=== PATIENT | male | born 1995 | race Caucasian/White ===

== ENCOUNTER 2021-10-21 16:20 | Emergency (ER) | payer MEDICARE, MEDICAID, SELFPAY ==
--- NOTE | ~2021-10-21 | XR_ITS ---
EXAM: XR knee RT min 4V HISTORY: knee pain AND SWELLING AFTER PLAYING SOCCER COMPARISON: None available FINDINGS: Normal mineralization. No fracture or dislocation. No lytic or blastic lesion. Joint space s maintained. No erosion or periosteal change. Infrapatellar soft tissue swelling, along the patellar tendon. Small volume joint fluid. IMPRESSION: No acute osseous finding in the right knee. Small volume joint effusion. Infrapatellar soft tissue sw elling. Reviewed, dictated and finalized at location K. IMPRESSION: No acute osseous finding in the right knee. Small volume joint effusion. Infrap atellar soft tissue swelling.
[2021-10-21 16:33] VITALS: BP 117/82; PULSE 99; RESP 16; TEMP 37.2; O2SAT 98
--- NOTE | 2021-10-21 17:06 | ED.GENADULT ---
HPI - General Adult General Chief complaint: Extremity Injury, Lower Stated complaint: Right Knee Injury Time Seen by Provider: 10/21/21 16:34 Source: RN notes reviewed History of Present Illness HPI narrative: Patient presents emergency department from home for right knee pain. Patient states he was playing soccer 2 days ago when he twisted his right knee and felt pain over the medial knee states since that time he had pain in the medial and posterior knee with some mild swelling present he denies falling down onto the knee he denies feeling any pops in the knee patient states he has been resting the knee and taking anti-inflammatories but the pain is worse with standing on the knee denies any pain in the ankle or hip patient does have a history of connective tissue disorder he states that he does easily injure ligaments Related Data Allergies Allergy/AdvReac Type Severity Reaction Status Date / Time No Known Allergies Allergy Verified 10/21/21 16:45 Review of Systems Review of Systems: Gen.: Denies fevers or chills Musculoskeletal: See HPI Neuro: Denies numbness, tingling, weakness Skin: Denies rash Endo: Denies DM PMFSH Past Medical History Medical History (Updated 10/21/21 @ 17:09 by Lai Moreau DO) Connective tissue disorder Family History Family History (Updated 04/06/12 @ 14:32 by DOCTOR UNKNOWN) Other Family history of thyroid disease Hypertension Social History Social History Smoking status: Never smoker Exam Narrative: APPEARANCE: No acute distress, nontoxic, resting in bed Eyes: EOMI HEENT: Normocephalic, atraumatic, RESPIRATORY: No respiratory distress MUSCULOSKELETAl: Tender palpation over the right medial posterior knee no tenderness over the anterior or lateral knee pain with flexion greater than 45 degrees no tenderness of the right hip or ankle right lower extremity neurovascular intact no overlying erythema NEURO: Awake and alert. Following commands, speech normal, no focal deficits SKIN:: Warm, dry. Normal Color no rash or lesions Course Course Emergency Course: Discussed with patient results of workup and diagnosis. Discussed need for follow-up with primary care, proper use of medication, and reasons to return to the emergency department. Patient understands and agrees to current treatment plan Vital Signs Vital signs: Vital Signs Temperature 98.9 F 10/21/21 16:33 Pulse Rate 99 10/21/21 16:33 Respiratory Rate 16 10/21/21 16:33 Blood Pressure 117/82 10/21/21 16:33 Pulse Oximetry 98 10/21/21 16:33 Temperature 98.9 F 10/21/21 16:33 Pulse Rate 99 10/21/21 16:33 Respiratory Rate 16 10/21/21 16:33 Blood Pressure 117/82 10/21/21 16:33 Pulse Oximetry 98 10/21/21 16:33 Medical Decision Making Vital Signs Vital Signs: Vital Signs Temperature 98.9 F 10/21/21 16:33 Pulse Rate 99 10/21/21 16:33 Respiratory Rate 16 10/21/21 16:33 Blood Pressure 117/82 10/21/21 16:33 Pulse Oximetry 98 10/21/21 16:33 Temperature 98.9 F 10/21/21 16:33 Pulse Rate 99 10/21/21 16:33 Respiratory Rate 16 10/21/21 16:33 Blood Pressure 117/82 10/21/21 16:33 Pulse Oximetry 98 10/21/21 16:33 Imaging Data Radiologist's impression: ITS Impressions Knee X-Ray 10/21/21 16:57 IMPRESSION: No acute osseous finding in the right knee. Small volume joint effusion. Infrapatellar soft tissue swelling. Discharge Plan Discharge Clinical Impression: Right knee sprain Patient Disposition: Home, Self-Care Condition: Stable Instructions: Antibiotic Form, Knee Sprain (ED) Additional Instructions: Return for increasing pain numbness or tingling of the extremities or any other symptoms of concern Prescriptions: New ibuprofen 400 mg tablet 400 mg PO Q6H PRN (Reason: pain) Qty: 20 RF: 0 Follow-up/Referrals: Campbell Wesley MD [Physician] -
== END 2021-10-21 17:33 | disposition home or self-care (01) ==
LOC: ANHED 17:29
PROVIDERS: Emergency Provider Emergency Medicine
DX: S83.91XA Sprain of unspecified site of right knee, initial encounter (principal); L94.9 Localized connective tissue disorder, unspecified; X50.9XXA Other and unspecified overexertion or strenuous movements or postures, initial encounter; Y93.66 Activity, soccer
CPT/HCPCS: 73564; 99283

== ENCOUNTER 2022-03-24 07:26 | Outpatient (CLI) | payer MEDICARE, MEDICAID, SELFPAY ==
--- NOTE | ~2022-03-24 | XR_ITS ---
XR chest 2V DATE: 03/24/2022 08:07 INDICATION: Unintentional weight loss TECHNIQUE: PA and lateral views COMPARISON: None FINDINGS: There is 45 degrees levoscoliosis of the thoracic spine. Right ventriculoperitoneal shunt catheter. Normal heart size. No hilar or mediastinal enlargement. The lungs appear moderately hyperinflated but clear of infiltrate or consolidation. No pleural effusi on or pulmonary vascular congestion or pneumothorax. IMPRESSION: Prominent thoracic levoscoliosis Right ventriculoperitoneal shunt; again noted is apparent discontinuity of the shunt in the right low er cervical area. Moderate hyperinflation; no active cardiopulmonary disease or significant change since 06/18/2017 Reviewed, dictated and finalized at location B. IMPRESSION: Prominent thoracic levoscoliosis Right ventriculoperitoneal shunt; again noted is apparent discontinuity of the shunt in the right lower cervical area. Moderate hyperinflation; no active cardiopulmonary disease or significant maria e since 06/18/2017
[2022-03-24 08:21] LABS: Basophils Percent Auto 0.4 % (0.2-1.2); Eosinophils Absolute Auto 0.1 K/mm3 (0-0.3); Eosinophils Percent Auto 1.5 % (0-4.4); Hematocrit 44.6 % (42.0-52.0); Hemoglobin 14.2 g/dL (14.0-18.0); Immature Granulocyte Absolute 0.02 K/mm3 (0.00-0.031); Immature Granulocyte Percent A 0.3 % (0-0.5); Lymphocytes Percent Auto 36.9 % (18.3-44.2); Mean Corpuscular HGB Conc 31.8 g/dl (32-36); Mean Corpuscular Hemoglobin 30.9 pg (26-34); Mean Corpuscular Volume 97.2 fl (80-100); Monocytes Absolute Auto 0.7 K/mm3 (0.1-0.6); Monocytes Percent Auto 8.9 % (2.6-8.5); Neutrophils Absolute Auto 3.8 K/mm3 (1.3-6.7); Platelet Count Result 195 k/mm3 (150-375); Red Blood Count 4.59 M/mm3 (4.6-6.20); Red Cell Distribution Width 12.4 % (11.5-14.5); White Blood Count 7.3 K/mm3 (4.5-10.0)
[2022-03-24 08:26] LABS: Alanine Aminotransferase 22 U/L (6-50); Albumin Level 3.9 g/dL (3.5-5.1); Alkaline Phosphatase 67 U/L (38-126); Anion Gap 9 mmol/L (8-16); Aspartate Amino Transferase 18 U/L (17-59); Bilirubin,Total 1.7 mg/dL (0.2-1.3); Blood Urea Nitrogen 16 mg/dL (9-20); Calcium 8.8 mg/dL (8.4-10.2); Carbon Dioxide 28 mmol/L (22-30); Chloride 102 mmol/L (98-107); Estimated Glomerular Filt Rate > 60; Glucose 90 mg/dL (65-110); Potassium 3.6 mmol/L (3.4-5.0); Sodium 139 mmol/L (137-145)
[2022-03-24 08:52] LABS: Thyroid Stimulating Hormone 0.824 uIU/mL (0.465-4.680)
[2022-03-24 08:53] LABS: Appearance Urine Clear (Clear); Bilirubin Urine Negative (Negative); Blood Urine Negative (Negative); Color Urine Yellow (Yellow); Glucose Urine UA Negative (Negative); Ketones Urine Negative (Negative); Leukocyte Esterase Ur Negative LEU/UL (Negative); Nitrate Urine Negative (Negative); Protein Urine Negative (Negative); Specific Grav Ur 1.025 (1.001-1.035); Urobilinogen Urine 0.2 mg/dL (<2.0); pH Urine 6.5 (5.0-9.0)
[2022-03-24 09:04] LABS: Add Urine Microscopic? NO
== END 2022-03-24 07:27 | disposition home or self-care (01) ==
LOC: ANHLAB 07:31
PROVIDERS: PCP Internal Medicine; Visit Provider Internal Medicine
DX: R63.4 Abnormal weight loss (principal); M41.9 Scoliosis, unspecified
CPT/HCPCS: 36415; 71046; 80053; 81003; 84443; 85025

== ENCOUNTER 2022-07-21 12:25 | Outpatient (CLI) | payer MEDICARE, MEDICAID, SELFPAY ==
[2022-07-21 12:49] LABS: Hematocrit 49.3 % (42.0-52.0); Hemoglobin 16.3 g/dL (14.0-18.0); Mean Corpuscular HGB Conc 33.1 g/dl (32-36); Mean Corpuscular Hemoglobin 32.2 pg (26-34); Mean Corpuscular Volume 97.4 fl (80-100); Mean Platelet Volume 9.9 fl (7.4-10.4); Platelet Count Result 224 k/mm3 (150-375); Red Blood Count 5.06 M/mm3 (4.6-6.20); Red Cell Distribution Width 12.3 % (11.5-14.5)
[2022-07-21 13:06] LABS: Chloride 104 mmol/L (98-107)
[2022-07-21 13:18] LABS: Alanine Aminotransferase 21 U/L (6-50); Albumin Level 4.4 g/dL (3.5-5.1); Alkaline Phosphatase 90 U/L (38-126); Anion Gap 7 mmol/L (8-16); Aspartate Amino Transferase 23 U/L (17-59); Bilirubin,Total 1.8 mg/dL (0.2-1.3); Blood Urea Nitrogen 12 mg/dL (9-20); Carbon Dioxide 30 mmol/L (22-30); Estimated Glomerular Filt Rate > 60; Glucose 102 mg/dL (65-110); Potassium 4.3 mmol/L (3.4-5.0); Sodium 141 mmol/L (137-145)
== END 2022-07-21 12:26 | disposition home or self-care (01) ==
PROVIDERS: PCP Internal Medicine; Visit Provider Emergency Medicine
DX: I10 Essential (primary) hypertension (principal)
CPT/HCPCS: 36415; 80053; 85027

== ENCOUNTER 2024-12-06 10:05 | Outpatient (CLI) | payer MEDICARE, SELFPAY ==
--- NOTE | ~2024-12-06 | US_ITS ---
EXAMINATION:US_VDOPREFRT_US INDICATION:Lower extremity pain. TECHNIQUE: Multiple grayscale, color flow and Doppler images of the right and left lower extremity de ep venous systems were obtained and reviewed. COMPARISON:No prior studies for comparison. FINDINGS: The common femoral, superficial femoral and popliteal veins demonstrate normal respiratory variation, augmentation and compressibility. Color flow is also seen within the posterior tibial, pe roneal, greater saphenous and profunda veins. No evidence for venous reflux. IMPRESSION: 1: No lower extremity deep venous thrombosis or venous reflux. Reviewed, dictated and finalized at location A.
--- OUTSIDE RECORDS SUMMARY | 2024-12-06 10:27 | XMS_ITS | Encounter Summary ---
Author Organization [facility] Address [address] [facility] [place] [address] Care Team Providers Care Accounts Receivable Coordinator Name Role Phone Ruiz Diaz MD Primary Care Provider [phone] Ammon Vega MD Unavailable Unknown, Provider Primary Care Provider UnavailRuma Wharton MD Primary Care Provider [phone] Reason for Visit * Reason Onset Date Comments General 09/20/2018 Encounter Details Date Type Department Care Team (Late st Contact Info) Description 09/20/2018 Telephone [facility] [address] [address] Ruiz Diaz MD [address] [place] [id number] General Social History Tobacco Use Types Packs/Day Years Used Date Smoking Tobacco: Some Days Cigarettes 0.1 13.4 Started: 2011 Smokeless Tobacco: Never Alcohol Use Standard Drinks/Week Comments Yes 0 (1 standard drink = 0.6 oz pur e alcohol) Rare--1-2 drink/ month Sex and Gender Information Value Date Recorded Sex Assigned at Male 11/11/2021 11:36 AM CDT Legal Sex Male 5:35 AM 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 She states she had already spoken with a nurse practiotoner this am. I advised her to have Medardo take ibuprofen Up to 4 times a day for the pain and swelling. Continue cold compress to the area. Nurse practitioner already placed referral for OT. Please give pt the information to call and schedule appt for OT. Thanks * Telephone Encounter - Marcella Valiente - 09/20/2018 7:54 AM CDT The pt's mother called for the results of the pt's XR Rt hand on 09/17/18 This nurse went over the results with the pt's mother but she would appreciate a call back from Dr Diaz to discuss the xray The pt's mother actually thought it was fractured Please call at # [phone] documented in this encounter Plan of Treatment Upcoming Encounters Date Type Department Care Team (Late st Contact Info) Description 08/15/2025 1:00 PM ERP PROJECT MANAGER Office Visit [facility] Dermatology [address] [place] [address], [place] [address] Herrera Potts MD [address] [place] [address] [address] [place] [address] documented as of this encounter Goals Goal Patient Goal Type Associated Problems Recent Progress Patient-Stated? Author Safety General On track( 020 1:18 PM CDT) Keira Duran, RN Note: Expected end date: Ongoing Interventions: Your nurse will assess your risk for falls/injury each visit Use appropriate and safe transfer methods Medication Management General On track( 020 1:18 PM CDT) Keira Duran, JOHN Note: Expected end date: Ongoing Interventions: Take all medications as prescribed Let your doctor know right away about any changes in your medications documented as of this encounter Visit Diagnoses Diagnosis Right hand pain- Primary Pain in limb documented in this encounter Care Teams Accounts Receivable Coordinator Relationship Specialty Start Date End Date Ruiz Diaz MD PCP - General 10/12/17 04/04/19 Unknown, Provider PCP - General 05/30/24 06/09/24 Ruma [place] [address] PCP - General Internal Medicine 06/10/24 Ammon Vega MD Neurology 10/26/17 documented as of this encounter
--- OUTSIDE RECORDS SUMMARY | 2024-12-06 10:27 | XMS_ITS | Clinical Summary ---
Author Organization [facility] Main [facility] s Address [address] [place] [address] Care Team Providers Care Block Splitter Operator Name Role Phone Danisha Vincent Primary Care Provider [phone] Allergies No known active allergies Medications mycophenolate mofetil (CELLCEPT) 500 mg tablet Take 1 tablet (500 mg total) by mouth daily 2 Active predniSONE (DELTASONE) 5 mg tablet Take 1 tablet (5 mg) by mouth daily 2 Active nortriptyline (PAMELOR) 50 mg capsule Take 75 mg by mouth nightly 2 Active brimonidine (ALPHAGAN) 0.2 % ophthalmic solution INSTILL 1 DROP INTO THE LEFT EYE THREE TIMES DAILY 2 Active dorzolamide-erik oloL (COSOPT) 22.3-6.8 mg/mL ophthalmic solution Administer 1 drop into affected eye(s) 3 (three) times a day 2 Active Rocklatan 0.02-0.005 % drops INSTILL ONE DROP INTO THE LEFT EYE AT BEDTIME 2 Active ibuprofen (ADVIL,MOTRIN) 400 mg tablet Take by mouth as needed Active promethazine (PHENERGAN) 25 mg tablet Take 1 tablet (25 mg total) by mouth every 6 (six) hours as needed 10/07/202 1 Active prednisoLONE acetate (PRED FORTE) 1 % ophthalmic suspension Administer 1 drop into affected eye(s) 4 (four) times a day 1 Active sodium chloride (JESSICA 128) 2 % ophthalmic solutionIndicat ions:Corneal Edema Administer 1 drop into the right eye daily Active Active Problems Problem Noted Date Diagnosed Date 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 Intellectual disability 07/14/2022 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/18/2013 Overview (10/08/2016): Arnold-Chiari deformity Glaucoma 07/18/2013 Overview (10/08/2016): Glaucoma Developmental delay 07/18/2013 Overview (10/08/2016): Developmental delay Hydrocephalus 07/18/2013 Overview (10/08/2016): Hydrocephalus Limb length discrepancy 07/18/2013 Overview (10/10/2016): Acquired unequal limb length Cerebral palsy 07/18/2013 Overview (10/10/2016): Cerebral palsy Premature 07/18/2013 Overview (10/10/2016): Prematurity Raynaud's disease 07/18/2013 Overview (10/10/2016): Raynauds disease Irritable bowel syndrome 11/25/2012 Snoring 11/25/2012 Absolute glaucoma 11/25/2012 Fracture of nasal bone 11/25/2012 Diarrhea 11/25/2012 Nasal congestion 11/25/2012 Cephalalgia 11/25/2012 Insomnia 11/25/2012 Encounters Date Type Department Care Team Description 10/28/2024 12:51 PM CDT - 10/28/2024 11:59 PM CDT Hospital Encounter [facility] [address] [place] [address] Unspecified injury of right lower leg, subsequent encounter Discharge Disposition: Discharge to home or self care 10/18/2024 Orders Only [facility] Health Information Management [address] [place] [address] Scanning, Provider from Last 3 Months Surgical History Surgery Date Site/Laterality Comments OTHER SURGICAL HISTORY [facility] shunt 1993 OTHER SURGICAL HISTORY [id number] 1998 OTHER SURGICAL HISTORY Bilateral inguinal heria repair OTHER SURGICAL HISTORY T&A OTHER SURGICAL HISTORY PE tubes multiple OTHER SURGICAL HISTORY Feeding tubes OTHER SURGICAL HISTORY Ahmed shunt bilateral eyes OTHER SURGICAL HISTORY Excision skin cancer - back ORAL SURGERY Oral surgery OTHER SURGICAL HISTORY Closed reduction - L elbow Family History Medical History Relation Name Comments Glaucoma Father Glaucoma; Hypertension Father Hypertension; Liver disease Father Liver disease; Thyroid disease Mother Thyroid diso rder; Relation Name Status Comments Father Mother Social History Tobacco Use Types Packs/Day Years Used Date Smoking Tobacco: Some Days Cigarettes Passive Smoke Exposure: Current Tobacco Cessation:Ready to Q uit: No; Counseling Given: Not Answered Sex and Gender Information Value Date Recorded Sex Assigned at Not on file Legal Sex Male 11:13 AM DISTRICT SALES REPRESENTATIVE Gender Identity Male 11/16/2022 12:40 PM CDT Sexual Orientation Straight 11/16/2022 12 :40 PM CDT Obstetrics History Last Filed Vital Signs Vital Sign Reading Time Taken Comments Blood Pressure 123/70 03/28/2024 8:15 AM CDT Pulse 75 03/28/2024 8:15 AM CDT Temperature 36.8 C (98.2 F) 03/28/2024 8:15 AM CDT Respiratory Rate 20 10/07/2023 12:33 PM CDT Oxygen Saturation 100% 03/28/2024 8:15 AM CDT Inhaled Oxygen Concentration - - Weight 41.7 kg (92 lb) 03/28/2024 8:15 AM CDT Height 160 cm (5' 3) 12/09/2023 11:00 AM CDT Body Mass Index 16.3 12/09/2023 11:00 AM CDT Plan of Treatment Health Maintenance Due Date Last Done Comments Depression Screening 1993 Hepatitis C Screening 1993 Varicella Vaccines (1 of 2 - 13+ 2-dose series) 2006 Hepatitis B Screening 2011 Regular Well Visit/Exam 18-64 2011 Zoster Vaccine (1 of 2) 2012 Covid-19 Vaccine ( season) 2024 12/26/2021, 12/26/2021, 05/02/2021, Additional history exists Influenza Vaccine (Season Ended) 2025 05/06/2022, 04/25/2021, 04/15/2021, Additional history exists Pneumococcal vaccine <65 (3 of 3 - PPSV23, PCV20 or PCV21) 11/29/2025 11/29/2020, 07/30/2018 DTaP/Tdap/Td Vaccine (3 - Td or Tdap) 07/06/2028 07/06/2018, 03/05/2016 HPV Vaccines Aged Out No longer eligi ble based on patient's age to complete this topic Procedures Procedure Name Priority Date/Time Associated Diagnosis Comments MRI KNEE RIGHT WO CONTRAST Schedule Routine, Read Routine (OP Routine) 10/28/2024 2:41 PM CDT Unspecified injury of right lower leg, subsequent encounter SCAN - OTHER ORDERS 10/18/2024 1:34 PM CDT from Last 3 Months Results * MRI Knee Right WO Contrast (10/28/2024 2:41 PM CDT) Anatomical Region Laterality Modality Lower Extremities Right Magnetic Reson ance 10/28/2024 4:21 PM CDT Impressions 10/28/2024 4:39 PM CDT 1. Normal right knee MRI examination. Dictated by: Nikos Chung D.O. The radiology attending physician has personally reviewed this study, and had reviewed and/or edited this written report and agrees with it. Electronically signed by: Bimal Tariq M.D. Narrative 10/28/2024 4:39 PM CDT EXAMINATION: MRI KNEE RIGHT WO CONTRAST HISTORY: Injury of right leg COMPARISON: None TECHNIQUE: Multiplanar, multisequence MR examination of the right knee was performed without intravenous or intraarticular contrast. FINDINGS: In the medial compartment, the meniscus is intact. No focal chondral defect or subchondral marrow edema. In the lateral compartment, the meniscus is intact. No focal chondral defect or subchondral marrow edema. In the patellofemoral compartment, there is no focal chondral defect or subchondral marrow edema. The cruciate and collateral ligaments are intact. The extensor mechanism is normal as is the popliteus tendon. Small knee joint effusion without significant synovitis. No intra-articular loose body. Bone marrow signal is normal. There is a linear cutaneous ridge anterior to the tendon which may represent skin fold or scar. Subcutaneous T2 hyperintensity along the anteromedial patella and within the prepatellar quadriceps continuation are favored to represent dilated venous structure or small ganglion. Procedure Note Bimal Tariq MD - 10/28/2024 EXAMINATION: MRI KNEE RIGHT WO CONTRAST HISTORY: Injury of right leg COMPARISON: None TECHNIQUE: Multiplanar, multisequence MR examination of the right knee was performed without intravenous or intraarticular contrast. FINDINGS: In the medial compartment, the meniscus is intact. No focal chondral defect or subchondral marrow edema. In the lateral compartment, the meniscus is intact. No focal chondral defect or subchondral marrow edema. In the patellofemoral compartment, there is no focal chondral defect or subchondral marrow edema. The cruciate and collateral ligaments are intact. The extensor mechanism is normal as is the popliteus tendon. Small knee joint effusion without significant synovitis. No intra-articular loose body. Bone marrow signal is normal. There is a linear cutaneous ridge anterior to the tendon which may represent skin fold or scar. Subcutaneous T2 hyperintensity along the anteromedial patella and within the prepatellar quadriceps continuation are favored to represent dilated venous structure or small ganglion. IMPRESSION: 1. Normal right knee MRI examination. Dictated by: Nikos Chung D.O. The radiology attending physician has personally reviewed this study, and had reviewed and/or edited this written report and agrees with it. Electronically signed by: Bimal Tariq M.D. us Notinfile Unknown IMG MRI PROCEDURES Final Resul t * SCAN - OTHER ORDERS (10/18/2024 1:34 PM CDT) us Provider Scanning Final Result from Last 3 Months Insurance [facility] MEDICARE [facility] Address: [place] [address] [employer] MEDICARE [facility] Address: [address] [place] [address] Care Teams Block Splitter Operator Relationship Specialty Start Date End Date Danisha Vincent PA [address] [place] [address] PCP - General Physician Wood Drilling Machine Operator 10/25/24
--- OUTSIDE RECORDS SUMMARY | 2024-12-06 10:27 | XMS_ITS | Encounter Summary ---
Author Organization [facility] Address [address] [facility] [place] [address] Care Team Providers Care Cnc Applications Engineer Name Role Phone Ruiz Diaz MD Primary Care Provider [phone] Ammon Vega MD Unavailable Unknown, Provider Primary Care Provider Ruma Helton MD Primary Care Provider [phone] Reason for Visit * Reason Onset Date Comments Appointment 11/10/2017 Encounter Details Date Type Department Care Team (Late st Contact Info) Description 11/10/2017 Telephone [facility] [address] [address] Ruiz Diaz MD [address] [place] [phone] Appointment Social History Tobacco Use Types Packs/Day Years Used Date Smoking Tobacco: Former Smokeless Tobacco: Never Sex and Gender Information Value Date Recorded Sex Assigned at Male 11/11/2021 11:36 AM CDT Legal Sex Male 5:35 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 Diaz. * Telephone Encounter - Ruiz Diaz MD - 11/16/2017 3:02 PM CDT Can you add pt in on Thus am, at the end of acute care schedule at [facility]. Thanks * Telephone Encounter - Ruiz Diaz MD - 11/11/2017 8:00 PM CDT You can double book me on 11/24/17 at 3:10p. thanks * Telephone Encounter - Mary Hodges - 11/10/2017 1:32 PM CDT Pt Babak Rodrigues#: [id number] Best contact #: [phone]-ROSALBA Pool Pt's mom, Corine called to schedule an appt for her son (Pt) Dr. Diaz is scheduling for 02/2018. Pt needs appt as soon as possible to have [employer] Forms completed. If appt is needed, pt isavailable on Thu,Thu or Thu. Corine, works at [employer], Room [address]. She states if no appt is available and Dr. Shaheen Booth can complete forms without seeing pt, she will drop off forms. Can you please advise? I can call Corine and let her know. RENEE: 02/09/2017 NOV: Not scheduled Thank you documented in this encounter Plan of Treatment Upcoming Encounters Date Type Department Care Team (Late st Contact Info) Description 08/15/2025 1:00 PM GRADER MEAT Office Visit [facility] [address] [facility], [place] [address] Herrera Potts MD [facility] [facility] [address] [place] [address] documented as of this encounter Visit Diagnoses Not on filedocumented in this encounter Care Teams Cnc Applications Engineer Relationship Specialty Start Date End Date Ruiz Diaz MD PCP - General 10/12/17 04/04/19 Unknown, Provider PCP - General 05/30/24 06/09/24 [place] [address] PCP - General Internal Medicine 06/10/24 Ammon Vega MD Neurology 10/26/17 documented as of this encounter
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
--- OUTSIDE RECORDS SUMMARY | 2024-12-06 10:27 | XMS_ITS | Encounter Summary ---
Author Organization [facility] Address [address] [place] [address] Care Team Providers Care Child Care Development Specialist Name Role Phone Ruiz Diaz MD Primary Care Provider Ammon Vega MD Unavailable Unknown, Provider Primary Care Provider Ruma Helton MD Primary Care Provider [phone] Reason for Visit * Reason Onset Date Comments General 09/16/2018 1st attempt to r /o triage Returned Call 09/16/2018 Offered triage Encounter Details Date Type Department Care Team (Late st Contact Info) Description 09/16/2018 Telephone 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 Yesterday he rated it at 11of 10 on pain scale. He denies injury. 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 It's his outer hand and 5th little finger. He says the hand/finger is often red and swollen and the pain is sharp. He does not see you again until late January. Please advise. Corine (mom/poa) Pt's mom stated that it looked pretty swollen, and requested this nurse contact her son directly to be triaged for an acute care appt. Phone number to contact the pt is [phone] [facility] triage pool to contact pt * Telephone Encounter - Cira Young - 09/16/2018 12:16 PM CDT 1st attempt to contact pt. to r/o triage. Left name, affiliation and contact number [phone]. Will re attempt [phone] at a later time. [employer] message Babak Arana has asked me to report that he is having outer right hand pain. Yesterday he rated it at 11of 10 on pain scale. He denies injury. 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 It's his outer hand and 5th little finger. He says the hand/finger is often red and swollen and the pain is sharp. He does not see you again until late January. Please advise. Corine (mom/poa) documented in this encounter Plan of Treatment Upcoming Encounters Date Type Department Care Team (Late st Contact Info) Description 08/15/2025 1:00 PM HANDTOOLS REPAIRER Office Visit [facility] - Dermatology [address] [place] [address], [place] [address] Herrera Potts MD [address] [place] [address] [address] [place] [address] documented as of this encounter Goals Goal Patient Goal Type Associated Problems Recent Progress Patient-Stated? Author Safety General On track( 020 1:18 PM CDT) No Keira Kearney, RN Note: Expected end date: Ongoing Interventions: Your nurse will assess your risk for falls/injury each visit Use appropriate and safe transfer methods Medication Management General On track( 020 1:18 PM CDT) No Keira Kearney, JOHN Note: Expected end date: Ongoing Interventions: Take all medications as prescribed Let your doctor know right away about any changes in your medications documented as of this encounter Visit Diagnoses Not on filedocumented in this encounter Care Teams Child Care Development Specialist Relationship Specialty Start Date End Date Ruiz Diaz MD PCP - General 10/12/17 04/04/19 Unknown, Provider PCP - General 05/30/24 06/09/24 [place] [address] PCP - General Internal Medicine 06/10/24 Ammon Vega MD Neurology 10/26/17 documented as of this encounter
--- OUTSIDE RECORDS SUMMARY | 2024-12-06 10:27 | XMS_ITS | Encounter Summary ---
Author Organization [facility] Address [address] [facility] [place] [address] Care Team Providers Care Bunker Worker Name Role Phone Ammon Vega MD Unavailable Unknown, Provider Primary Care Provider UnavailRuma Wharton MD Primary Care Provider [phone] Reason for Visit * Reason Onset Date Comments Refill Request 02/28/2022 Encounter Details Date Type Department Care Team (Late st Contact Info) Description 02/28/2022 Refill [facility] [address] [place] [phone] Pedrito Chaparro MD [address] [place] [address] DE[place] [phone] Refill Request Social History Tobacco Use Types Packs/Day Years Used Date Smoking Tobacco: Some Days Cigarettes 0.1 13.4 Started: 2011 Smokeless Tobacco: Never Comments:social -3 every oth er day Alcohol Use Standard Drinks/Week Comments Yes 0 (1 standard drink = 0.6 oz pur e alcohol) Rare--1-2 drink/ month AUDIT-C Answer Date Recorded Q1: How often do you have a drink containing alc ohol? 2-4 times a month 11/29/2020 Q2: How many drinks containi ng alcohol do you have on a typical day when you are drinking? 1 or 2 11/29/2020 Q3: How often do you have si x or more drinks on one occasion? 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 Answer Date of Assessment Author No 01/19/2020 12:05 PM CDT Delmy Ugarte RN * Is person blind or have serious difficulty seeing? Answer Date of Assessment Author Yes 01/19/2020 12:05 PM CDT Delmy Ugarte RN * Does person have serious difficulty walking/climbing stairs? Answer Date of Assessment Author No 01/19/2020 12:05 PM CDT Delmy Ugarte RN * Does person have difficulty dressing/bathing? Answer Date of Assessment Author No 01/19/2020 12:05 PM CDT Delmy Ugarte RN * Does person have difficulty doing errands alone? Answer Date of Assessment Author Yes 01/19/2020 12:05 PM [place] Delmy Ugarte RN documented as of this encounter Mental Status * Does person have difficulty concentrating/remembering/making decisions? Answer Entry Date Author No 01/19/2020 12:05 PM [place] Delmy Ugarte RN documented in this encounter Plan of Treatment Upcoming Encounters Date Type Department Care Team (Late st Contact Info) Description 08/15/2025 1:00 PM MANAGER OF DEVELOPMENT Office Visit [facility] [address] [place] [address], [place] [address] Herrera Potts MD [address] [place] [address] [address] [place] [address] documented as of this encounter Goals Goal [...] on filedocumented in this encounter Care Teams Bunker Worker Relationship Specialty Start Date End Date Unknown, Provider PCP - General 05/30/24 06/09/24 Ruma Mcnally MD [address] [place] [phone] PCP - General Internal Medicine 06/10/24 Ammon Vega MD Neurology 10/26/17 documented as of this encounter
--- OUTSIDE RECORDS SUMMARY | 2024-12-06 10:27 | XMS_ITS | Encounter Summary ---
Author Organization [facility] Address [address] [place] [address] Care Team Providers Care Caustic Pump Operator Name Role Phone Ammon Vega MD Unavailable Unknown, Provider Primary Care Provider UnavailRuma Wharton MD Primary Care Provider [phone] Reason for Visit * Reason Onset Date Comments MEDICATION REFILL 03/03/2022 Encounter Details Date Type Department Care Team (Late st Contact Info) Description 03/03/2022 Telephone [facility] [address] [place] [phone] Pedrito Chaparro MD [address] [place] [address] DE[place] [phone] MEDICATION REFILL Social History Tobacco Use Types Packs/Day Years [...] AM CDT Legal Sex Male 5:35 AM COW BUYER Gender Identity Male 11/11/2021 11:36 AM CDT [...] 01/19/2020 12:05 PM CDT Delmy Ugarte RN documented as of this encounter Mental Status * Does person have difficulty concentrating/remembering/making decisions? Answer Entry Date Author No 01/19/2020 12:05 PM CDT Delmy Ugarte RN documented in this encounter Plan of Treatment Upcoming Encounters Date Type Department Care Team (Late st Contact Info) Description 08/15/2025 1:00 PM COW BUYER Office Visit [facility] Derm[facility] [address] [place] [address], [facility] [place] [address] Herrera Potts MD [address] [place] [address] 3 [place] [address] documented as of this encounter Goals Goal [...] on filedocumented in this encounter Care Teams Caustic Pump Operator Relationship Specialty Start Date End Date Unknown, Provider PCP - General 05/30/24 06/09/24 Ruma Mcnally MD [address] [place] [phone] PCP - General Internal Medicine 06/10/24 Ammon Vega MD Neurology 10/26/17 documented as of this encounter
--- OUTSIDE RECORDS SUMMARY | 2024-12-06 10:27 | XMS_ITS | Continuity of Care Document ---
Author Organization [facility] Address [address] [place] [address] Phone Care Team Providers Care Pipe Cleaner Name Role Phone Luis Phillips PA-C Unavailable Unava ilable Advance Directives Directive Yes / No Effective Date File Name No Information Encounters Encounter Description Practice Location Reason(s) For Visit Diagnoses Date Provider Providers Copied on Encounter [facility] [employer] [facility] , [address], [place], [place], [id number], tel:[phone] [employer] [facility] [employer] No Information [address] Alan Smith. [address], [place], [place], [id number], [place]. tel:[phone] Family History Family Member Type Diagnosis Age At Onset No Information Payers Payer name Insurance type Covered libertarian ID Authoriza tion(s) No Information Social History [...]
--- OUTSIDE RECORDS SUMMARY | 2024-12-06 10:27 | XMS_ITS | Encounter Summary ---
Author Organization [facility] Address [address] [place] [address] Care Team Providers Care Telegraph Repeater Installer Name Role Phone Ammon Vega MD Unavailable Unknown, Provider Primary Care Provider UnavailRuma Wharton MD Primary Care Provider [phone]- [phone] Reason for Visit * Reason Comments Refill Request Encounter Details Date Type Department Care Team (Late st Contact Info) Description 02/24/2022 Refill [facility] [address] [place] [address] MD [address] [place] [address] Refill Request Social History Tobacco Use Types [...] AM CDT Legal Sex Male 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 Answer Date of Assessment Author Yes 01/19/2020 12:05 PM [place] Delmy Ugarte RN documented as of this encounter Mental Status * Does person have difficulty concentrating/remembering/making decisions? Answer Entry Date Author No 01/19/2020 12:05 PM Delmy Wolf RN documented in this encounter Plan of Treatment Upcoming Encounters Date Type Department Care Team (Late st Contact Info) Description 08/15/2025 1:00 PM OFFICE MACHINERY OR EQUIPMENT INSTALLER Office Visit [facility] D[facility] [address] [place] [address], [facility] [place] [address] Herrera Potts MD [address] [place] [address] 3 [place] [address] documented as of this encounter Goals Goal [...] on filedocumented in this encounter Care Teams Telegraph Repeater Installer Relationship Specialty Start Date End Date Unknown, Provider PCP - General 05/30/24 06/09/24 Ruma Mcnally MD [address] [place] [phone] PCP - General Internal Medicine 06/10/24 Ammon Vega MD Neurology 10/26/17 documented as of this encounter
--- OUTSIDE RECORDS SUMMARY | 2024-12-06 10:27 | XMS_ITS | Referral Summary ---
Author Organization [facility] Address [address] [place] [address] Care Team Providers Care Conservation Planner Name Role Phone Danisha Vincent Primary Care Provider Encounters Date Type Department Care Team Description 10/28/2024 12:51 PM CDT - 10/28/2024 11:59 PM CDT Hospital Encounter [facility] [address] [place] [address] Unspecified injury of right lower leg, subsequent encounter Discharge Disposition: Discharge to home or self care 10/18/2024 Orders Only [facility] Health Information Management [address] [place] [address] Scanning, Provider from Last 3 Months Allergies No known active allergies Medications mycophenolate [...] mouth every 6 (six) hours as needed 1 Active prednisoLONE acetate (PRED FORTE) 1 [...] Nasal congestion 11/25/2012 Cephalalgia 11/25/2012 Insomnia 11/25/2012 Social History Tobacco Use Types Packs/Day Years Used Date Smoking Tobacco: Some Days Cigarettes Passive Smoke Exposure: Current Tobacco Cessation:Ready to Q uit: No; Counseling Given: Not Answered Sex and Gender Information Value Date Recorded Sex Assigned at Not on file Legal Sex Male 11:13 AM SENIOR GAME DEVELOPER Gender Identity Male 11/16/2022 12:40 PM CDT Sexual Orientation Straight 11/16/2022 12 :40 PM CDT Last Filed Vital Signs Vital Sign Reading [...] 12/09/2023 11:00 AM CDT Plan of Treatment Not on file Procedures Procedure Name Priority Date/Time Associated Diagnosis [...] Final Result from Last 3 Months Insurance [facility] Address: [address] [address] [place] [address] [employer] MEDICARE ADV[facility]AGE [facility] Address: [address] [address] [place] [address] Care Teams Conservation Planner Relationship Specialty Start Date End Date Danisha Vincent PA [address] [place] [id number] PCP - General Physician Clinical Information Systems Director 10/25/24
--- OUTSIDE RECORDS SUMMARY | 2024-12-06 10:27 | XMS_ITS | Encounter Summary ---
Author Organization [facility] Address [address] [place] [address] Care Team Providers Care Passenger Rate Clerk Name Role Phone Ammon Vega MD Unavailable Unknown, Provider Primary Care Provider UnavailRuma Wharton MD Primary Care Provider [phone] Encounter Details Date Type Department Care Team (Late st Contact Info) Description 08/08/2019 Telephone [facility] [address] [place] [address] Shirley Alexander, MANAGER MSW-CHEMICAL PROCESSING LABORER [address] [facility] [address] [facility] [place] [address] Social History Tobacco Use Types Packs/Day Years [...] AM CDT Legal Sex Male 5:35 AM SPORTS BROADCASTING INTERNSHIP Gender Identity Male 11/11/2021 11:36 AM CDT Sexual Orientation Straight 11/11/2021 11 :36 AM CDT 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 I verified the fax and she states that she has been trying for several days to get it to go through. Please call her at [phone]. [employer] documented in this encounter Miscellaneous Notes * Telephone Encounter - Rosalva Scott LPN - 08/08/2019 2:47 PM [employer]TS BR[employer]CASTING [employer]NS[employer] Form printed from media and placed in providers box. [employer] * Telephone Encounter - Rosalva Scott LPN - 08/08/2019 2:47 PM [employer] BR[employer]CAST[employer] Images from the original note were not included. Coby Dominguez- Nurse Communication; Shirley Hamlin, SHINE-CHEMICAL PROCESSING LABORER 1 minute ago (2:45 PM) RN communication please print form in media tab dated today for [employer] and place in BOAT OFFICER Boubacar's mailbox.thanks Routing comment Coby Dominguez Garrett R 1 minute ago (2:45 PM) Mr. Rodrigues, We have received the form and I have requested that it be printed and placed in Nurse Practitioner Boubacar's mailbox for completion will send to her high priority.Thank you for choosing [facility] Care and have a great day. This [facility] message has not been read. [employer] * Telephone Encounter - Coby Dominguez - 08/08/2019 1:30 PM CST Provided alternative fax # via [employer]. [employer]CAST[employer] documented in this encounter Plan of Treatment Upcoming Encounters Date Type Department Care Team (Late st Contact Info) Description 08/15/2025 1:00 PM SPORTS BROADCASTING INTERNSHIP Office Visit [facility] [address] [facility], [place] [address] Herrera Potts MD [address] [facility] 3L [place] [address] documented as of this encounter Goals Goal Patient Goal Type Associated Problems Recent Progress Patient-Stated? Author Safety General On track( 020 1:18 PM CDT) No Keira Kearney, JOHN Note: Expected end date: Ongoing Interventions: Your nurse will assess your risk for falls/injury each visit Use appropriate and safe transfer methods Medication Management General On track( 1:18 PM CDT) No Keira Kearney, JOHN Note: Expected end date: Ongoing Interventions: Take all medications as prescribed Let your doctor know right away about any changes in your medications documented as of this encounter Visit Diagnoses Not on filedocumented in this encounter Care Teams Passenger Rate Clerk Relationship Specialty Start Date End Date Unknown, Provider PCP - General 05/30/24 06/09/24 Ruma Mcnally MD [address] [place] [phone] PCP - General Internal Medicine 06/10/24 Ammon Vega MD Neurology 10/26/17 documented as of this encounter
--- OUTSIDE RECORDS SUMMARY | 2024-12-06 10:27 | XMS_ITS | Encounter Summary ---
Author Organization [facility] Address [address] [facility] [place] [address] Care Team Providers Care Electric Switch Repairer Name Role Phone Ammon Vega MD Unavailable [phone] Unknown, Provider Primary Care Provider Unavaila Ruma Langford MD Primary Care Provider [phone] Reason for Referral * Consultation (Routine) - Closed Specialty Diagnoses / Procedures Referred By Ross melo Referred To Contact Dermatology Diagnoses Multiple atypical skin moles Ruma Mcnally [place] [address] Phone: tel: fax: Herrera Potts MD [address] [facility] 3 [place] [address] Phone: tel: fax: Referral ID Status Reason Start Date Expiration Date V isits Requested Visits Authorized [id number] Closed Specialty Services Required 06/01/2024 06/01/2025 12 12 GER AVIATION Encounter Details Date Type Department Care Team (Latest Contact Info) Description 06/01/2024 Transcribe Orders [facility] - [facility] Scheduling [address] [place] [phone] Ruma Mcnally MD [address] [place] [address] Multiple atypical skin moles Social History Tobacco Use Types Packs/Day Years [...] CDT Legal Sex Male 5:35 AM MANAGER AVIATION Gender Identity Male 11/11/2021 11:36 AM CDT [...] Contact Info) Description 08/15/2025 1:00 PM MANAGER AVIATION Office Visit [facility] [address] [facility], [place] [address] Herrera Potts MD [address] [facility] 3L [place] [address] Scheduled Referrals Name Type Priority Associated Diagnoses Order Schedule AMB REFERRAL TO DERMATOLOGY Outpatient Referral Routine Multiple atypical skin moles 1 Occurrences starting 06/01/2024 until 06/01/2025 documented as of this encounter Goals Goal [...] as of this encounter Visit Diagnoses Diagnosis Multiple atypical skin moles- Primary documented in this encounter Care Teams Electric Switch Repairer Relationship Specialty Start Date End Date Unknown, Provider PCP - General 05/30/24 06/09/24 Ruma Mcnally MD [address] [place] [phone] PCP - General Internal Medicine 06/10/24 Ammon Vega MD Neurology 10/26/17 documented as of this encounter
== END 2024-12-06 10:06 | disposition home or self-care (01) ==
PROVIDERS: PCP Internal Medicine; Visit Provider Nurse Practitioner Family
DX: M79.661 Pain in right lower leg (principal); M79.662 Pain in left lower leg
CPT/HCPCS: 93971

== ENCOUNTER 2025-05-20 18:46 | Emergency (ER) | payer MEDICARE, SELFPAY ==
--- OUTSIDE RECORDS SUMMARY | 2022-10-22 03:39 | XMS_ITS | Continuity of Care Document ---
Author Organization [facility] Address [address] [place] [address] Phone Care Team Providers Care Director [employer] Name Role Phone Luis Phillips PA-C Unavailable Unava ilable Advance Directives Directive Yes / No Effective Date File Name No Information Encounters Encounter Description Practice Location Reason(s) For Visit Diagnoses Date Provider Providers Copied on Encounter [facility] , [address], [place], [place], [id number], tel:[phone] [facility] No Information [address] Alan Smith. [address], [place], [place], [id number], [place]. tel:[phone] Family History Family Member Type Diagnosis Age At Onset No Information Payers Payer name Insurance type Covered democrat ID Authoriza tion(s) No Information Social History Type Description Quantity Date Captured Comments Sex Male Smoking Status No Information Chief Complaint And Reason For Visit No Information Reason For Referral Reason For Referral No Information History Of Present Illness Encounter Date Complaint History Of Prese nt Illness No Information Functional Status Date Functional Assessmen t No Information Instructions Date Instruction Additional Infor mation No Information Assessments Type Assessment Date No Information Patient Care Teams Name Effective Dates (start - stop) Status Members No Information
--- OUTSIDE RECORDS SUMMARY | 2022-10-22 03:39 | XMS_ITS | Continuity of Care Document ---
Author Organization [facility] Address [address] [place] [address] Phone Care Team Providers Care Dip Filler Name Role Phone Luis Phillips PA-C Unavailable Unava ilable Advance Directives Directive Yes / No Effective Date File Name No Information Encounters Encounter Description Practice Location Reason(s) For Visit Diagnoses Date Provider Providers Copied on Encounter [facility] , [address], [place], [place], [id number], tel:[phone] [facility] No Information [address] Alan Smith. [address], [place], [place], [address], [place]. tel:[phone] Family History Family Member Type Diagnosis Age At Onset No Information Payers Payer name Insurance type Covered republican ID Authoriza tion(s) No Information Social History [...]
--- NOTE | ~2025-05-20 | XR_ITS ---
EXAMINATION: XR finger 1st LT min 2V, 05/20/2025 18:55 LINUX ADMIN HISTORY: left thumb injury bruise/swelling to proximal fall COMPARISON: No comparisons available. Findings: No acute fracture or malalignment. No significant degenerative changes. Soft tissues unremarkable. Impression: No acute fracture or malalignment. Reviewed, dictated and finalized at location P. X ADMIN Impression: No acute fracture or malalignment.
--- NOTE | 2025-05-20 18:49 | ED.UPPEXIN ---
HPI - Extremity Injury (Upper) General Chief Complaint: Extremity Injury, Upper Stated Complaint: LT Hand thumb injury Time Seen by Provider: 05/20/25 18:47 Source: patient Mode of arrival: ambulatory Limitations: no limitations History of Present Illness HPI narrative: Babak is a 29 year old male patient presenting to the clinic today with c/o left thumb injury/pain. Patient was playing floor hockey and fell. Has bruising and swelling to the left proximal thumb. Is able to flex and extend over the pip joint, tenderness over the proximal thumb and mcp joint. Denies hitting his head or any LOC. Related Data Home Medications ?Medication ?Instructions ?Recorded ?Confirmed ?Last Taken ?Type atorvastatin 20 mg tablet (Lipitor) 20 mg PO DAILY 11/02/24 05/20/25 Unknown History atomoxetine 40 mg capsule mg PO 05/20/25 Unknown History brimonidine 0.2 % eye drops drp 05/20/25 Unknown History dorzolamide 22.3 mg-timolol 6.8 05/20/25 Unknown History mg/mL eye drops fluticasone propionate 50 intranasal 05/20/25 Unknown History mcg/actuation nasal spray,suspension mycophenolate mofetil 500 mg tablet PO 05/20/25 Unknown History netarsudil 0.02 %-latanoprost drp 05/20/25 Unknown History 0.005 % eye drops (Rocklatan) nortriptyline 75 mg capsule mg 05/20/25 Unknown History prednisolone acetate 1 % eye drp 05/20/25 Unknown History drops,suspension prednisone 5 mg tablet mg 05/20/25 Unknown History Allergies Allergy/AdvReac Type Severity Reaction Status Date / Time No Known Allergies Allergy Verified 05/20/25 18:48 Review of Systems Review of Systems: Pertinent positives per HPI. Patient denies any fever, chills, rash, headache, visual changes, dizziness, cough, runny nose, sore throat, shortness of breath, chest pain, palpitations, nausea, vomiting, diarrhea, constipation, abdominal pain, or any urinary issues. [facility] Past Medical History Medical History Venous malformation Knee pain Quadriceps tendonitis Left knee pain Right knee injury Connective tissue disorder Family History Family History Other Family history of thyroid disease Hypertension Social History Social History Smoking status: Never smoker Alcohol intake: never Substance use: never Living arrangements: with family Gender identity (if verbalized by the patient): Male Comments At the time of my signature, I reviewed and agree with the nursing past medical, surgical, social, and family history. There is no relevant family history pertinent to the patient complaint. Exam Narrative: General: Well-developed, well nourished, in no apparent distress Head: Normocephalic, atraumatic. Cardio: Regular rate and rhythm, s1 and s2 normal, no murmur appreciated. Resp: Clear to auscultation bilaterally, no rhonchi, rales, wheezing or rubs. Musculoskeletal: No deformity, bruising and swelling to the left proximal thumb, tenderness to palpation over the proximal thumb and over the MCP joint, limited rom over the mcp joint, muscle strength strong and equal, peripheral pulse strong, no edema, no cyanosis, normal gait and station Course Course Emergency Course: Portions of this record may have been created with voice recognition software. Level of Care: Express Care Visit Vital Signs Vital signs: Vital Signs Temperature 36.7 C 05/20/25 18:53 Pulse Rate 92 05/20/25 18:53 Respiratory Rate 18 05/20/25 18:53 Blood Pressure 138/95 H 05/20/25 18:53 Pulse Oximetry 100 05/20/25 18:53 Oxygen Delivery Room Air 05/20/25 18:53 Temperature 36.7 C 05/20/25 18:53 Pulse Rate 92 05/20/25 18:53 Respiratory Rate 18 05/20/25 18:53 Blood Pressure 138/95 H 05/20/25 18:53 Pulse Oximetry 100 05/20/25 18:53 Oxygen Delivery Room Air 05/20/25 18:53 Vital signs reviewed MDM - Extremity Injury (Upper) MDM Narrative Medical decision making narrative: At the time of visit patient is resting comfortably on the exam table. Patient appears to be nontoxic. C/o left thumb injury/pain. Patient was playing floor hockey and fell. Has bruising and swelling to the left proximal thumb. Is able to flex and extend over the pip joint, tenderness over the proximal thumb and mcp joint. Denies hitting his head or any LOC. Rates pain 5/6 out of 10. Has applied ice pack. Diagnostics: X-ray of the left thumb was ordered. X-ray of the left thumb is negative for any fracture or malalignment. Plan: Suspect patient has left thumb sprain. Recommend wearing a thumb spica splint, rest, ice, and elevation. May take Tylenol/Motrin for pain. Supportive measures were discussed with the patient and they voiced understanding discharge instructions and agrees to treatment plan. Return precautions reviewed Differential Diagnosis Differential diagnosis: Likely finger sprain, dislocation of finger and other (Finger fracture) Discharge Plan Discharge Clinical Impression: Left thumb sprain Qualifiers: Encounter type: initial encounter Sprain of finger site: metacarpophalangeal joint Qualified Code(s): S63.642A - Sprain of metacarpophalangeal joint of left thumb, initial encounter Patient Disposition: Home Condition: Stable Instructions: Antibiotic Form, Finger Sprain (ED) Additional Instructions: X-ray negative for any fracture or malalignment Rest, ice, elevate, and wear thumb spica splint as directed Tylenol/motrin for pain as discussed. Follow up with your PCP if symptoms persist more than 1 week. Patient Language: Yi Prescriptions: No Action prednisone 5 mg tablet mycophenolate mofetil 500 mg tablet PO prednisolone acetate 1 % drops,suspension nortriptyline 75 mg capsule brimonidine 0.2 % drops dorzolamide-timolol 22.3-6.8 mg/mL drops fluticasone propionate 50 mcg/actuation spray,suspension INTRANASAL atomoxetine 40 mg capsule PO Rocklatan 0.02-0.005 % drops ibuprofen 400 mg tablet 400 mg PO Q6H PRN (Reason: pain) Qty: 20 0RF atorvastatin [Lipitor] 20 mg tablet 20 mg PO DAILY Follow-up/Referrals: Melisa,EDER Raman [Primary Care Provider, Unknown] Time of Disposition: 19:07 Quality NIHSS Nursing Documentation ED NIHSS nursing documentation: reviewed/agree
--- OUTSIDE RECORDS SUMMARY | 2025-05-20 18:52 | XMS_ITS | Encounter Summary ---
Author Organization [facility] Health Address [address] [place] [address] Care Team Providers Care Machine Operator Transplanter Name Role Phone Ammon Vega MD Unavailable [phone] Unknown, Provider Primary Care Provider UnavailRuam Wharton MD Primary Care Provider [phone] Reason for Visit * Reason Onset Date Comments Refill Request 02/28/2022 Encounter Details Date Type Department Care Team (Late st Contact Info) Description 02/28/2022 Refill [facility] [address] [place] [phone] Pedrito Chaparro MD [address] [place] [address] [place] [phone] Refill Request Social History Tobacco Use Types Packs/Day Years Used Date Smoking Tobacco: Some Days Cigarettes 0.1 13.9 Started: 2011 Smokeless Tobacco: Never Comments:social -3 [...] AM CDT Legal Sex Male 5:35 AM SUPERVISOR THROWING DEPARTMENT Gender Identity Male 11/11/2021 11:36 AM CDT [...] st Contact Info) Description 08/15/2025 1:00 PM SUPERVISOR THROWING DEPARTMENT Office Visit [facility] - Dermatology [address] [place] [address], [place] [address] Herrera Potts MD [address] [place] [address] 3 [place] [address] documented as of this encounter Goals Goal [...] on filedocumented in this encounter Care Teams Machine Operator Transplanter Relationship Specialty Start Date End Date Unknown, Provider PCP - General 05/30/24 06/09/24 Ruma Mcnally MD [address] [place] [phone] PCP - General Internal Medicine 06/10/24 Ammon Vega MD Neurology 10/26/17 documented as of this encounter
--- OUTSIDE RECORDS SUMMARY | 2025-05-20 18:52 | XMS_ITS | Encounter Summary ---
Author Organization [facility] Health Address [address] [facility] [place] [address] Care Team Providers Care Director Digital Sales Name Role Phone Ammon Vega MD Unavailable [phone] Unknown, Provider Primary Care Provider UnavailRuma Wharton MD Primary Care Provider [phone] Reason for Referral * Consultation (Routine) - Closed Specialty Diagnoses / Procedures Referred By Ross melo Referred To Contact Dermatology Diagnoses Multiple atypical skin m[place] [address] Phone: tel: fax: Herrera Potts MD [address] [facility] 3 DE[place] [address] Phone: tel: fax: Referral ID Status Reason Start Date Expiration Date V isits Requested Visits Authorized [id number] Closed Specialty Services Required 06/01/2024 06/01/2025 12 12 RETER Encounter Details Date Type Department Care Team (Latest Contact Info) Description 06/01/2024 Transcribe Orders [facility] - [facility] Scheduling [address] [place] [address] Ruma Mcnally MD [facility] [place] [address] Multiple atypical skin moles Social History Tobacco Use Types Packs/Day Years Used Date Smoking Tobacco: Every Day Cigarettes 0.1 13.9 Started: 2011 Smokeless Tobacco: [...] AM CDT Legal Sex Male 5:35 AM CONCRETER Gender Identity Male 11/11/2021 11:36 AM CDT [...] Author No 01/19/2020 12:05 PM CDT Delmy Ugarte, JOHN * Does person have difficulty dressing/bathing? Answer Date of Assessment Author No 01/19/2020 12:05 PM [place] Delmy Ugarte, JOHN * Does person have difficulty doing errands [...] st Contact Info) Description 08/15/2025 1:00 PM CONCRETER Office Visit [facility] [address] [place] [address], [place] [address] Herrera Potts MD [address] [facility] 3L DEPT [place] [address] Scheduled Referrals Name Type Priority Associated Diagnoses [...] Primary documented in this encounter Care Teams Director Digital Sales Relationship Specialty Start Date End Date Unknown, Provider PCP - General 05/30/24 06/09/24 Ruma Mcnally MD [address] [place] [phone] PCP - General Internal Medicine 06/10/24 Ammon Vega MD Neurology 10/26/17 documented as of this encounter
--- OUTSIDE RECORDS SUMMARY | 2025-05-20 18:52 | XMS_ITS | Encounter Summary ---
Author Organization [facility] Health Address [address] [place] [address] Care Team Providers Care Commissary Worker Name Role Phone Ammon Vega MD Unavailable Unknown, Provider Primary Care Provider UnavailRuma Wharton MD Primary Care Provider [phone] Reason for Visit * Reason Onset Date Comments MEDICATION REFILL 03/03/2022 Encounter Details Date Type Department Care Team (Late st Contact Info) Description 03/03/2022 Telephone [facility] [address] [place] [phone] Pedrito Chaparro MD [address] [place] [address] [place] [phone] MEDICATION REFILL Social History Tobacco Use Types [...] AM CDT Legal Sex Male 5:35 AM SNUFF PACKING MACHINE OPERATOR Gender Identity Male 11/11/2021 11:36 AM CDT [...] st Contact Info) Description 08/15/2025 1:00 PM SNUFF PACKING MACHINE OPERATOR Office Visit [facility] [address] [place] [address], [facility] [place] [address] Herrera Potts MD [address] [place] [address] 3 [place] [address] documented as of this encounter Goals Goal [...] on filedocumented in this encounter Care Teams Commissary Worker Relationship Specialty Start Date End Date Unknown, Provider PCP - General 05/30/24 06/09/24 Ruma Mcnally MD [address] [place] [phone] PCP - General Internal Medicine 06/10/24 Ammon Vega MD Neurology 10/26/17 documented as of this encounter
--- OUTSIDE RECORDS SUMMARY | 2025-05-20 18:52 | XMS_ITS | Encounter Summary ---
Author Organization [facility] Health Address [address] [place] [address] Care Team Providers Care Self Defense Instructor Name Role Phone Ammon Vega MD Unavailable Unknown, Provider Primary Care Provider UnavailRuma Wharton MD Primary Care Provider [phone] Reason for Visit * Reason Comments Refill Request Encounter Details Date Type Department Care Team (Late st Contact Info) Description 02/24/2022 Refill [facility] [address] [place] [address] MD [facility]5 [place] [phone] Refill Request Social History Tobacco Use Types [...] AM CDT Legal Sex Male 5:35 AM CHIEF RESERVOIR ENGINEERING Gender Identity Male 11/11/2021 11:36 AM CDT [...] st Contact Info) Description 08/15/2025 1:00 PM CHIEF RESERVOIR ENGINEERING Office Visit [facility] Derm[facility] [address] [place] [address], [facility] [place] [address] Herrera Potts MD [address] [place] [address] 3 [place] [address] documented as of this encounter Goals Goal Patient Goal Type Associated Problems Recent Progress Patient-Stated? Author Safety General On track( 020 1:18 PM CDT) No Keira Kearney, RN Note: Expected end date: Ongoing Interventions: Your nurse will assess your risk for falls/injury each visit Use appropriate and safe transfer methods Medication Management General On track( 020 1:18 PM CDT) No Keira Kearney RN Note: Expected end date: Ongoing Interventions: Take all medications as prescribed Let your doctor know right away about any changes in your medications documented as of this encounter Visit Diagnoses Not on filedocumented in this encounter Care Teams Self Defense Instructor Relationship Specialty Start Date End Date Unknown, Provider PCP - General 05/30/24 06/09/24 Ruma Mcnally MD [address] [place] [phone] PCP - General Internal Medicine 06/10/24 Ammon Vega MD Neurology 10/26/17 documented as of this encounter
--- OUTSIDE RECORDS SUMMARY | 2025-05-20 18:52 | XMS_ITS | Encounter Summary ---
Author Organization [facility] Health Address [address] [place] [address] Care Team Providers Care Automotive Production Worker Name Role Phone Ruiz Diaz MD Primary Care Provider [phone] Ammon Vega MD Unavailable Unknown, Provider Primary Care Provider Ruma Helton MD Primary Care Provider [phone]- [phone] Reason for Visit * Reason Onset Date Comments Appointment 11/10/2017 Encounter Details Date Type Department Care Team (Late st Contact Info) Description 11/10/2017 Telephone [facility] General Internal Medicine [address] [address] Ruiz Diaz MD [address] [place] [address] Appointment Social History Tobacco Use Types Packs/Day Years Used Date Smoking Tobacco: Former Smokeless Tobacco: Never Sex and Gender Information Value Date Recorded Sex Assigned at Male 11/11/2021 11:36 AM CDT Legal Sex Male 5:35 AM PUBLIC EMPLOYMENT MEDIATOR Gender Identity Male 11/11/2021 11:36 AM CDT [...] CDT Can you add pt in on Weds am, at the end of acute care schedule at [facility]. Thanks * Telephone Encounter - Ruiz Diaz MD - 11/11/2017 8:00 PM CDT You can double book me on 11/24/17 at 3:10p. thanks * Telephone Encounter - Mary Hodges - 11/10/2017 1:32 PM CDT Pt Babak Rodrigues#: [id number] Best contact #: [phone]-ROSALBA Pool Pt's mom, Corine called to schedule an appt for her son (Pt) Dr. Diaz is scheduling for 02/2018. Pt needs appt as soon as possible to have [employer] Forms completed. If appt is needed, pt isavailable on Thu,Thu or Thu. Corine, works at [employer], Room 302. She states if no appt [...] st Contact Info) Description 08/15/2025 1:00 PM PUBLIC EMPLOYMENT MEDIATOR Office Visit [facility] [address] [facility], [place] [address] Herrera Potts MD [facility] [facility] 3L [place] [address] documented as of this encounter Visit Diagnoses Not on filedocumented in this encounter Care Teams Automotive Production Worker Relationship Specialty Start Date End Date Ruiz Diaz MD PCP - General 10/12/17 04/04/19 Unknown, Provider PCP - General 05/30/24 06/09/24 Ruma Mcnally [place] [address] PCP - General Internal Medicine 06/10/24 Ammon Vega MD Neurology 10/26/17 documented as of this encounter
[2025-05-20 18:53] VITALS: BP 138/95; PULSE 92; RESP 18; TEMP 36.7; O2SAT 100
--- OUTSIDE RECORDS SUMMARY | 2025-05-20 18:53 | XMS_ITS | Clinical Summary ---
Author Organization [facility] Address [address] [place] [address] Care Team Providers Care Heating Element Repairer Name Role Phone Ammon Vega MD Unavailable [phone] Ruma Mcnally MD Primary Care Provider [phone] Source Comments [facility],non-owned Affiliates and Associated Physician Practices is amultiple site organization consisting of ambulatory clinics and hospital sitesin [place], [place], [place] and [place]. This disclosure is being madepursuant to the Care Everywhere program and may not contain all information available regarding this patient. Last updated 18.[facility] Allergies No known active allergies Medications * [...] (one) patch to skin once daily Active moxifloxacin (Vigamox) 0.5 % ophthalmic solution Instill 1 (one) drop into right eye 4 times daily 4 Active tobramycin-dexA METHasone (TobraDex) 0.3-0.1 % ophthalmic ointment Instill into right eye at bedtime 4 Active nortriptyline (Pamelor) 75 MG capsule 4 Active predniSONE (Deltasone) 5 MG tablet TAKE 1 TABLET BY MOUTH TWICE DAILY 60 tablet 3 5 Active prednisoLONE acetate (Pred Forte) 1 % ophthalmic suspension INSTILL ONE DROP INTO THE RIGHT EYE THREE TIMES A DAY 15 mL 11 5 Active Active Problems Problem Noted Date Diagnosed [...] Took ear impressions - AU and ordered ClearSaleing swim molds. Pt pd with check. Will [...] 04/03/2020 Overview (04/03/2020): Called and spoke to [facility]. related that recent mri brain was [...] 05/30/2019 Assessment & Plan (05/30/2019 9:32 AM BEHAVIORAL HEALTH THERAPIST): Patient had one episode of syncope in 2017. 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 Status post STEWARDING SUPERVISOR shunt. 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 Unknown if this is related to his other congenital problems including heart defect, Arnold-Chiari malformation, brain hamartoma, possibly mild cerebral palsy etc. By history the patient had possibly Ahmed implant superiorly both eyes will living in [place]. More recently he is also had inferior nasal tube shunt implant in [place]. 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 Sinus pause of up to 3 seconds during sleeping. Acute pancreatitis 10/24/2016 8 Seizure 09/14/2016 11/16/2017 Diarrhea 11/25/2012 05/31/2018 Encounters Date Type Department Care Team Description 04/19/2025 Refill [facility] - [facility] [address] [place] [phone] Pedrito Chaparro MD Refill Request from Last 3 Months Immunizations Immunization Administration Dates Next Due COVID JOVANI PRIMARY 18+YR 09/07/2020 COVID MODERNA BIVALENT 12Y+ 50MCG/0.5ML 11/17/2022 Covid Moderna primary monova lent 12+ yr 0.5mL 04/20/2021 Covid Pfizer primary monoval ent 12+ yr 0.3mL Purple cap 12/26/2021 INFLUENZA VACCINE 04/20/2025,,04/16/2020,2017,04/05/2017 INFLUENZA VACCINE, QUADR. 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 Not on file Not on file Last Filed Vital Signs Vital Sign Reading Time Taken Comments Blood Pressure 121/87 06/16/2024 12:45 PM BEHAVIORAL HEALTH THERAPIST Pulse 70 06/16/2024 12:45 PM BEHAVIORAL HEALTH THERAPIST Temperature 36.8 C (98.3 F) 06/16/2024 12:13 PM BEHAVIORAL HEALTH THERAPIST Respiratory Rate 12 06/16/2024 12:45 PM BEHAVIORAL HEALTH THERAPIST Oxygen Saturation 99% 06/16/2024 12:45 PM BEHAVIORAL HEALTH THERAPIST Inhaled Oxygen Concentration 21% 06/16/2024 1 1:30 AM BEHAVIORAL HEALTH THERAPIST Weight 40.4 kg (89 lb) 06/16/2024 7:49 AM BEHAVIORAL HEALTH THERAPIST Height 160 cm (5' 3) 06/16/2024 7:49 AM BEHAVIORAL HEALTH THERAPIST Body Mass Index 15.77 06/16/2024 7:49 AM BEHAVIORAL HEALTH THERAPIST Plan of Treatment Upcoming Encounters Date Type Department Care Team (Late st Contact Info) Description 08/15/2025 1:00 PM BEHAVIORAL HEALTH THERAPIST Office Visit [facility] - Dermatology [address] [facility], [place] [phone] Herrera Potts MD [address] [facility] [address]L [place] [address] Health Maintenance Due Date Last Done Comments HEPATITIS B VACCINE (1 of 3 - 19+ 3-dose series) 2012 ZOSTER VACCINE (1 of 2) 2012 HPV VACCINE (1 - 3-dose SCDM series) 2020 DEPRESSION SCREENING 07/06/2024 MEDICARE AWV CALENDAR YEAR 2024 COVID-19 VACCINE (6 - 2024- season) 2025 11/17/2022, 12/26/2021, 05/02/2021, Additional history exists PNEUMOCOCCAL VACCINE (3 of 3 - PCV20 or PCV21) 11/29/2025 11/29/2020, 07/30/2018 DTAP/TDAP/TD VACCINES (2 - Td or Tdap) 07/06/2028 07/06/2018 HIV SCREENING Completed 02/03/2019 HEPATITIS C SCREENING Completed 11/29/2020 INFLUENZA VACCINE Completed 04/20/2025, , 05/06/2022, Additional history exists HIB VACCINE Aged Out No longer eligi [...] On track( 020 1:18 PM CDT) No Koeper, Keira K., RN Note: Expected end date: Ongoing Interventions: Take all medications as prescribed Let your doctor know right away about any changes in your medications Medical Devices Implanted Type Area Credentialing Coordinator Device Identifier Shelf Expiration Date Model / Serial / Lot Cornea Implanted:Qty: 1 on 06/16/2024 by Pedrito Chaparro MD at [facility] Ocular Right: Eye [employer] 05/26/2025 [id number] / / [id number] Impl Opth 250sq Mm Brvldt Tarah 1 Qdrnt - [id number] Implanted:Qty: 1 on 08/03/2019 by Simón Ghosh MD at [facility] Right: Eye [employer] 08/02/2020 [id number] / [id number] / Graft Tissue Ttpl Ioptch Sclr 1x.6cm - [id number] Implanted:Qty: 1 on 08/03/2019 by Simón Ghosh MD at [facility] Right: Eye [employer] 11/03/2023 [id number] / [id number] / Jl Cornea - [id number] Implanted:Qty: 1 on 01/19/2020 by Pedrito Chaparro MD at [facility] Right: Eye [employer] 01/30/2020 BILL ONLY CORNEA / [id number] / [id number] Procedures Procedure Name Priority Date/Time Associated Diagnosis [...] comfort Non-reac tive 11/29/2020 1:52 PM CDT [facility] Comment:Hepatitis C Antibody screen indicates [...] 11:50 AM CDT 11/29/2020 1:00 PM CDT Pedrito Menezes DISHWASHER BUSSER-INSOLE LIP TURNER LAB - CHEMISTRY ORDERABLES Final Result Performing Organization Address City/[facility]/ZIP Co de Phone Number [facility] [address] [place] [address], [facility] [phone] * HIV-1 HIV-2 ANTIGEN/ANTIBODY (02/03/2019 7:59 AM CDT) HIV Antigen/Antibod y 1 & 2 Non-reacti ve Non-react comfort 02/03/2019 9:16 AM CDT [facility] Comment: Neither HIV-1 p24 Antigen nor HIV-1/HIV-2 Antibodies are detected. Blood BLOOD SPECIMEN / Unknown Venipuncture / Unknown 02/03/2019 7:59 AM CDT 02/03/2019 8:02 AM CDT Simón Richards MD LAB - HEMATOLOGY ORDERABLES F inal Result Performing Organization Address [facility] Co de Phone Number [facility] [address] [place] [address], [facility] [phone] from Last 3 Months or Most Recently Relevant to Health Maintenance Insurance MEDICAID - OUT OF STATE [facility] MANAGED MEDICARE ADV [facility] MANAGED MEDICARE ADV Advance Directives Documents on File Type Date Recorded Patient Terrazzo Tile Setter Expl anation Adv Directive/Living Will/POA 06/19/2019 11:46 PM Adv Directive/Living Will/POA 03/29/2019 1:47 AM Adv Directive/Living Will/POA 03/29/2019 1:47 AM * Full Code (Latest Code Status on File) Date Activated Date Inactivated Comments 10/18/2018 1:00 PM 10/18/2018 5:37 PM Care Teams Heating Element Repairer Relationship Specialty Start Date End Date Ruma Mcnally MD [address] [place] [address] PCP - General Internal Medicine 06/10/24 Ammon Vega MD Neurology 10/26/17
--- OUTSIDE RECORDS SUMMARY | 2025-05-20 18:53 | XMS_ITS | Encounter Summary ---
Author Organization [facility] Health Address [address] [facility] [place] [address] Care Team Providers Care Beck Operator Name Role Phone Ammon Vega MD Unavailable Unknown, Provider Primary Care Provider UnavailRuma Wharton MD Primary Care Provider [phone] Encounter Details Date Type Department Care Team (Late st Contact Info) Description 08/08/2019 Telephone [facility] [address] [place] [address] Shirley Alexander, CUSTOMER LOYALTY REPRESENTATIVE-SCIENTIFIC AFFAIRS MANAGER [address] OF [facility] [place] [address] Social History Tobacco Use Types Packs/Day Years [...] AM CDT Legal Sex Male 5:35 AM UMBRELLA FRAME MAKER Gender Identity Male 11/11/2021 11:36 AM CDT Sexual Orientation Straight 11/11/2021 11 :36 AM CDT 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 I verified the fax and she states that she has been trying for several days to get it to go through. Please call her at [phone]. ELLA FRAME MAKER documented in this encounter Miscellaneous Notes * Telephone Encounter - Rosalva Scott LPN - 08/08/2019 2:47 PM UMBRELLA FRAME MAKER Form printed from media and placed in providers box. ELLA FRAME MAKER * Telephone Encounter - Rosalva Scott LPN - 08/08/2019 2:47 PM UMBRELLA FRAME MAKER Images from the original note were not included. Coby Dominguez- Nurse Communication; Shirley Hamlin, SHINE-SCIENTIFIC AFFAIRS MANAGER 1 minute ago (2:45 PM) RN communication please print form in media tab dated today for [employer] and place in ROLLER BEARING INSPECTOR Boubacar's mailbox.thanks Routing comment Coby Dominguez Garrett R 1 minute ago (2:45 PM) Mr. Rodrigues, We have received the form and I have requested that it be printed and placed in Nurse Practitioner Boubacar's mailbox for completion will send to her high priority.Thank you for choosing [facility] Care and have a great day. This [employer] message has not been read. ELLA FRAME MAKER * Telephone Encounter - Coby Dominguez - 08/08/2019 1:30 PM CST Provided alternative fax # via [employer] ELLA FRAME MAKER documented in this encounter Plan of Treatment Upcoming Encounters Date Type Department Care Team (Late st Contact Info) Description 08/15/2025 1:00 PM UMBRELLA FRAME MAKER Office Visit [facility] [address] [facility], [place] [address] Herrera Potts MD [address] [facility] 3L [place] [address] documented as of this encounter Goals Goal [...] on filedocumented in this encounter Care Teams Beck Operator Relationship Specialty Start Date End Date Unknown, Provider PCP - General 05/30/24 06/09/24 Ruma Mcnally MD [address] [place] [address] PCP - General Internal Medicine 06/10/24 Ammon Vega MD Neurology 10/26/17 documented as of this encounter
--- OUTSIDE RECORDS SUMMARY | 2025-05-20 18:53 | XMS_ITS | Encounter Summary ---
Author Organization [facility] Address [address] [place] [address] Care Team Providers Care Loss Prevention Agent Name Role Phone Ruiz Diaz MD Primary Care Provider Ammon Vega MD Unavailable Unknown, Provider Primary Care Provider Ruma Helton MD Primary Care Provider [phone] Reason for Visit * Reason Onset Date Comments General 09/16/2018 1st attempt to r /o triage Returned Call 09/16/2018 Offered triage Encounter Details Date Type Department Care Team (Late st Contact Info) Description 09/16/2018 Telephone [facility] General Internal Medicine [address] [address] Ruiz Diaz MD [address] [place] [address] General (1st attempt to r/o triage); Returned Call (Offered triage) Social History Tobacco Use Types Packs/Day Years Used Date Smoking Tobacco: Some Days Cigarettes 0.1 13.9 Started: 2011 Smokeless Tobacco: Never Alcohol Use Standard Drinks/Week Comments Yes 0 (1 standard drink = 0.6 oz pur e alcohol) Rare--1-2 drink/ month Sex and Gender Information Value Date Recorded Sex Assigned at Male 11/11/2021 11:36 AM CDT Legal Sex Male 5:35 AM TOLL BRIDGE ATTENDANT Gender Identity Male 11/11/2021 11:36 AM CDT Sexual Orientation Straight 11/11/2021 11 :36 AM CDT 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 to r/o triage. Left name, affiliation and contact number [phone]. Will re attempt [phone] at a later time. Pay with a Tweet message Babak Arana has asked me to [...] st Contact Info) Description 08/15/2025 1:00 PM TOLL BRIDGE ATTENDANT Office Visit [facility] - Dermatology [address] [place] [address], [place] [address] Herrera Potts MD [address] [place] [address] [address] [facility] [place] [address] documented as of this encounter Goals Goal [...] on filedocumented in this encounter Care Teams Loss Prevention Agent Relationship Specialty Start Date End Date Ruiz Diaz MD PCP - General 10/12/17 04/04/19 Unknown, Provider PCP - General 05/30/24 06/09/24 Ruma Mcnally [place] [address] PCP - General Internal Medicine 06/10/24 Ammon Vega MD Neurology 10/26/17 documented as of this encounter
--- OUTSIDE RECORDS SUMMARY | 2025-05-20 18:53 | XMS_ITS | Clinical Summary ---
Author Organization [facility] s Address [address] [place] [address] Care Team Providers Care Wedding Designer Name Role Phone Danisha Vincent Primary Care Provider [phone] Allergies No known active allergies Medications mycophenolate [...] LEFT EYE THREE TIMES DAILY 2 Active dorzolamide-timol oL (COSOPT) 22.3-6.8 mg/mL ophthalmic solution Administer 1 [...] sodium chloride (JESSICA 128) 2 % ophthalmic solutionIndicatio ns:Corneal Edema Administer 1 drop into the right eye daily Active atorvastatin (LIPITOR) 20 mg tablet 5 Active atomoxetine (STRATTERA) 10 mg capsuleIndication s:Attention-Defic it Hyperactivity Disorder Take 1 capsule (10 mg total) by mouth daily Active atomoxetine (STRATTERA) 40 mg capsuleIndication s:Attention-Defic it Hyperactivity Disorder Take 1 capsule (40 mg total) by mouth daily Active Active Problems Problem Noted Date Diagnosed Date Symptomatic varicose veins, right 02/13/2025 Assessment & Plan (03/15/2025 2:48 PM CDT): 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 He wished proceed. We discussed getting him scheduled after I am able to discuss further with his acquisitions librarian to understand a little bit more about his condition. I am wanting to rule out any known association with venous malformations. Assessment & Plan (02/13/2025 3:12 PM CDT): Right lower extremity CEAP C3 disease, discussed findings with the patient and his mother. Overall we discussed some congenital abnormalities can lead to an incomplete deep or superficial venous system. Prior to any sort of varicose vein procedures or ablation this would need to be discussed with his acquisitions librarian. I discussed the importance of compression therapy. Reflux protein purification scientist ordered. We will follow up after further discussions with his other physicians. Pain of right lower extremity 01/12/2025 Assessment & Plan (01/12/2025 2:55 PM CDT): He is being seen pain to the right posterior knee extending into the calf with ambulation. No symptoms of rest pain or ischemic ulceration. Current duplex shows normal ABIs with lower extremity is warm well perfused nonpalpable distal pulses. Discussed with Dr. Lc Escobar. Follow-up with CT abdomen and pelvis with runoff. 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 [...] Encounters Date Type Department Care Team Description 03/30/2025 Orders Only [facility] Vascular and Vein Surgery [address] [place] [address] [place] [phone] Lc Escobar MD Varicose veins of leg with pain, right (Primary Dx) 03/30/2025 Documentation [facility] Vascular and Vein Surgery [address] [place] [phone] Dasha Do RN 03/30/2025 Telephone [facility] Vascular and Vein Surgery [address] [place] [phone] Dasha Do, RN 03/22/2025 Documentation [facility] Vascular and Vein Surgery [address] [facility] [address] [place] [address] Dasha Do, RN 03/20/2025 Telephone [facility] Pediatric Genetics [facility] 2nd [place] [address] [place] [address] Eileen Sullivan 03/13/2025 3:00 PM CDT Office Visit [facility] Vascular and Vein Surgery [address] [facility] [address] [place] [address] Lc Escobar MD Symptomatic varicose veins, right (Primary Dx) 03/03/2025 2:42 PM CDT - 03/03/2025 11:59 PM CDT Hospital Encounter [facility] Cardiac Testing [address] [place] [address] Varicose veins of lower extremity with pain, bilateral Discharge Disposition: Discharge to home or self care from Last 3 Months Surgical History Surgery Date Site/Laterality Comments OTHER SURGICAL HISTORY 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 OTHER SURGICAL HISTORY [id number] 1998 OTHER SURGICAL HISTORY Bilateral inguinal heria [...] on file Legal Sex Male 11:13 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 Gender Identity Male 11/16/2022 12:40 PM CDT Sexual Orientation Straight 11/16/2022 12 :40 PM CDT Last Filed Vital Signs Vital Sign Reading Time Taken Comments Blood Pressure 118/81 03/13/2025 2:24 PM CDT Pulse 96 03/13/2025 2:24 PM CDT Temperature 36.8 C (98.2 F) 03/28/2024 8:15 AM CDT Respiratory Rate 20 10/07/2023 12:33 PM CDT Oxygen Saturation 100% 03/28/2024 8:15 AM CDT Inhaled Oxygen Concentration - - Weight 42.2 kg (93 lb) 03/13/2025 2:23 PM CDT Height 160 cm (5' 3) 03/13/2025 2:23 PM CDT Body Mass Index 16.47 03/13/2025 2:23 PM CDT Plan of Treatment Health Maintenance Due Date Last Done Comments Depression Screening 1993 Hepatitis C Screening 1993 Varicella Vaccines (1 of 2 - 13+ 2-dose series) 2006 Hepatitis B Screening 2011 Regular Well Visit/Exam 18-64 2011 Zoster Vaccine (1 of 2) 2012 HPV Vaccines (1 - 3-dose SCD M series) 2020 Covid-19 Vaccine (5 - 2024-2 6 season) 2025 12/26/2021, 12/26/2021, 05/02/2021, Additional history exists Influenza Vaccine (#1) 2025 , 04/25/2021, 04/15/2021, Additional history exists Pneumococcal vaccine <65 (3 of 3 - PCV20 or PCV21) 11/29/2025 11/29/2020, 07/30/2018 DTaP/Tdap/Td Vaccine (3 - Td or Tdap) 07/06/2028 07/06/2018, 03/05/2016 Procedures Procedure Name Priority Date/Time Associated Diagnosis Comments US VENOUS REFLUX BILATERAL Routine 03/03/2025 5:28 PM CDT Varicose veins of lower extremity with pain, bilateral from Last 3 Months Results * US Venous Reflux Bilateral (03/03/2025 5:28 PM CDT) Anatomical Region Laterality Modality Vascular Bilateral Ultrasound 03/03/2025 3:06 PM CDT Narrative 03/07/2025 7:58 AM CDT Lower Extremity Venous Reflux Duplex Report Patient Name: DARIANJOCELYNN R : 1995 (29y 8m) Study Date: 03/03/2025 3:06:58 PM Sex: M Narrow Gauge Operator: JEFF Schuler Ref Provider: LC ESCOBAR Quality: Adequate Order Provider: LC ESCOBAR PROCEDURES: Vascular Report: Lower extremity venous valvular insufficiency or reflux evaluation is performed with rapid cuff inflator. Veins evaluated are sapheno-femoral junction, great saphenous, common femoral, femoral, profunda femoral, popliteal, sapheno-popliteal and small saphenous veins bilaterally. Criteria for superficial vein reflux is retrograde blood flow greater than 0.5 seconds in the standing position. INDICATIONS: I83.813 Varicose veins of bilateral lower extremities with pain. COMPARISONS: No prior exams. MEASUREMENTS: Right Value Left Value Rt GSV at SFJ Dim 5.00 mm Lt GSV at SFJ Dim 4.70 mm Rt GSV Prx Dim 4.60 mm Lt GSV Prx Dim 0.00 mm Rt GSV Knee Dim 2.50 mm Lt GSV Knee Dim 1.90 mm Rt GSV Calf Prx Dim 1.70 mm Lt GSV Calf Prx Dim 1.60 mm Rt SSV Prx Dim 0.90 mm Lt SSV Prx Dim 1.30 mm Rt SSV Mid Dim 1.30 mm Lt SSV Mid Dim 1.80 mm Rt CFV Reflux Time 0.00 sec Lt CFV Reflux Time 0.00 sec Rt SFJ Reflux Time 4.30 sec Lt SFJ Reflux Time 3.70 sec Rt GSV Thigh Reflux 3.50 sec Lt GSV Thigh Reflux 0.00 sec Rt FV Mid Reflux 0.00 sec Lt FV Mid Reflux 0.00 sec Rt GSV Knee Reflux 1.60 sec Lt GSV Knee Reflux 0.00 sec Rt GSV Calf Prx Reflux 4.30 sec Lt GSV Calf Prx Reflux 4.00 sec Rt Pop Vein Reflux 0.00 sec Lt Pop Vein Reflux 0.00 sec Rt SSV Prx Reflux 3.50 sec Lt SSV Prx Reflux 0.00 sec Rt SSV Mid Reflux 4.20 sec Lt SSV Mid Reflux 0.90 sec Right Value Left Value FINDINGS: Patient positioning: Reflux testing is performed in reverse Trendelenburg position. Bilateral: The common femoral, femoral, popliteal, and calf veins were evaluated with compression maneuvers. No evidence of deep vein thrombus or SVT by duplex. Right: The common femoral, femoral, popliteal, and calf veins were evaluated with compression maneuvers. No evidence of deep vein thrombus by duplex. No evidence of superficial vein thrombus on the right. On the right venous reflux noted in sapheno-femoral junction, proximal great saphenous vein, great saphenous vein at the knee, great saphenous vein below the knee (or calf) and small saphenous vein. Left: The common femoral, femoral, popliteal, and calf veins were evaluated with compression maneuvers. No evidence of deep vein thrombus by duplex. On the left venous reflux noted in sapheno-femoral junction, great saphenous vein below the knee (or calf) and small saphenous vein. CONCLUSIONS: There is no evidence of acute deep vein thrombosis in the lower extremities bilaterally. Right GSV: Hemodynamically significant reflux in the right saphenofemoral junction, great saphenous vein in the thigh, great saphenous vein at the knee and great saphenous vein in the calf. Right SSV: Hemodynamically significant reflux in the right saphenopopliteal junction and small saphenous vein in the calf. Left GSV: Hemodynamically significant reflux in the left saphenofemoral junction and great saphenous vein in the calf. ATTESTATION: I have reviewed and interpreted the pertinent images and measurements of this study. I attest to the conclusions in the final report that is provided above. Electronically Signed By: Lc Escobar MD 03/07/2025 7:37:36 AM CDT Procedure Note Lc Escobar MD - 03/07/2025 Lower Extremity Venous Reflux Duplex Report Patient Name: JOCELYNN FARMER R : 1995 (29y 8m) Study Date: 03/03/2025 3:06:58 PM Sex: M Narrow Gauge Operator: JEFF Schuler Ref Provider: LC ESCOBAR Quality: Adequate Order Provider: LC ESCOBAR PROCEDURES: Vascular Report: Lower extremity venous valvular insufficiency or reflux evaluation isperformed with rapid cuff inflator. Veins evaluated are sapheno-femoral junction, great saphenous, commonfemoral, femoral, profunda femoral, popliteal, sapheno-popliteal and small saphenous veinsbilaterally. Criteria for superficial vein reflux is retrograde blood flow greater than0.5 seconds in the standing position. INDICATIONS: I83.813 Varicose veins of bilateral lower extremities with pain. COMPARISONS: No prior exams. MEASUREMENTS: Right Value Left Value Rt GSV at SFJ Dim 5.00 mm Lt GSV at SFJ Dim 4.70 mm Rt GSV Prx Dim 4.60 mm Lt GSV Prx Dim 0.00 mm Rt GSV Knee Dim 2.50 mm Lt GSV Knee Dim 1.90 mm Rt GSV Calf Prx Dim 1.70 mm Lt GSV Calf Prx Dim 1.60 mm Rt SSV Prx Dim 0.90 mm Lt SSV Prx Dim 1.30 mm Rt SSV Mid Dim 1.30 mm Lt SSV Mid Dim 1.80 mm Rt CFV Reflux Time 0.00 sec Lt CFV Reflux Time 0.00 sec Rt SFJ Reflux Time 4.30 sec Lt SFJ Reflux Time 3.70 sec Rt GSV Thigh Reflux 3.50 sec Lt GSV Thigh Reflux 0.00 sec Rt FV Mid Reflux 0.00 sec Lt FV Mid Reflux 0.00 sec Rt GSV Knee Reflux 1.60 sec Lt GSV Knee Reflux 0.00 sec Rt GSV Calf Prx Reflux 4.30 sec Lt GSV Calf Prx Reflux 4.00 sec Rt Pop Vein Reflux 0.00 sec Lt Pop Vein Reflux 0.00 sec Rt SSV Prx Reflux 3.50 sec Lt SSV Prx Reflux 0.00 sec Rt SSV Mid Reflux 4.20 sec Lt SSV Mid Reflux 0.90 sec Right Value Left Value FINDINGS: Patient positioning: Reflux testing is performed in reverse Trendelenburg position. Bilateral: The common femoral, femoral, popliteal, and calf veins were evaluated withcompression maneuvers. No evidence of deep vein thrombus or SVT by duplex. Right: The common femoral, femoral, popliteal, and calf veins were evaluated withcompression maneuvers. No evidence of deep vein thrombus by duplex. No evidence ofsuperficial vein thrombus on the right. On the right venous reflux noted in sapheno- femoraljunction, proximal great saphenous vein, great saphenous vein at the knee, greatsaphenous vein below the knee (or calf) and small saphenous vein. Left: The common femoral, femoral, popliteal, and calf veins were evaluated withcompression maneuvers. No evidence of deep vein thrombus by duplex. On the left venousreflux noted in sapheno-femoral junction, great saphenous vein below the knee (or calf)and small saphenous vein. CONCLUSIONS: There is no evidence of acute deep vein thrombosis in the lowerextremities bilaterally. Right GSV: Hemodynamically significant reflux in the right saphenofemoraljunction, great saphenous vein in the thigh, great saphenous vein at the knee and greatsaphenous vein in the calf. Right SSV: Hemodynamically significant reflux in the rightsaphenopopliteal junction and small saphenous vein in the calf. Left GSV: Hemodynamically significant reflux in the left saphenofemoraljunction and great saphenous vein in the calf. ATTESTATION: I have reviewed and interpreted the pertinent images and measurements ofthis study. I attest to the conclusions in the final report that is provided above. Electronically Signed By: Lc Escobar MD 03/07/2025 7:37:36 AM CDT Lc Escobar MD IM US PROCEDURES Final Result from Last 3 Months Insurance [facility] MEDICARE ADVANTAGE [facility] Address: [place] [id number] [employer]HC MEDICARE ADVANTAGE [facility] Address: [place] [id number] [place] [address] Care Teams Wedding Designer Relationship Specialty Start Date End Date Danisha Vincent PA [address] [place] [address] PCP - General Physician [place] 10/25/24
--- OUTSIDE RECORDS SUMMARY | 2025-05-20 18:53 | XMS_ITS | Encounter Summary ---
Author Organization [facility] Address [address] [facility] [place] [address] Care Team Providers Care Mold Repairer Name Role Phone Ruiz Diaz MD Primary Care Provider Ammon Vega MD Unavailable Unknown, Provider Primary Care Provider Ruma Helton MD Primary Care Provider [phone]- [phone] Reason for Visit * Reason Onset Date Comments General 09/20/2018 Encounter Details Date Type Department Care Team (Late st Contact Info) Description 09/20/2018 Telephone [facility] General Internal Medicine [address] [address] Ruiz Diaz MD [address] [place] [address] General Social History Tobacco Use Types Packs/Day Years Used Date Smoking Tobacco: Some Days Cigarettes 0.1 13.9 Started: 2011 Smokeless Tobacco: Never Alcohol Use Standard Drinks/Week Comments Yes 0 (1 standard drink = 0.6 oz pur e alcohol) Rare--1-2 drink/ month Sex and Gender Information Value Date Recorded Sex Assigned at Male 11/11/2021 11:36 AM CDT Legal Sex Male 5:35 AM BROWN SOURER Gender Identity Male 11/11/2021 11:36 AM CDT Sexual Orientation Straight 11/11/2021 11 :36 AM CDT 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 Not on file Not on file Not on file documented as of this encounter Miscellaneous Notes * Telephone Encounter - Virgen Lewisflorialphonso - 09/23/2018 1:48 PM CDT First attempt [...] it was fractured Please call at # [phone] documented in this encounter Plan of Treatment Upcoming Encounters Date Type Department Care Team (Late st Contact Info) Description 08/15/2025 1:00 PM BROWN SOURER Office Visit [facility] - Dermatology [address] [place] [address], [place] [address] Herrera Potts MD [address] [place] [address] [address] [place] [address] documented as of this encounter Goals Goal [...] limb documented in this encounter Care Teams Mold Repairer Relationship Specialty Start Date End Date Ruiz Diaz MD PCP - General 10/12/17 04/04/19 Unknown, Provider PCP - General 05/30/24 06/09/24 Ruma Mcnally MD [address] [place] [phone] PCP - General Internal Medicine 06/10/24 Ammon Vega MD Neurology 10/26/17 documented as of this encounter
== END 2025-05-20 19:09 | disposition home or self-care (01) ==
PROVIDERS: Emergency Provider Nurse Practitioner Family; PCP Physician Assistant
DX: S63.642A Sprain of metacarpophalangeal joint of left thumb, initial encounter (principal); W18.30XA Fall on same level, unspecified, initial encounter; Y93.22 Activity, ice hockey; L94.9 Localized connective tissue disorder, unspecified
CPT/HCPCS: 73140; 99213; G0463